=== PATIENT | male | born 1945 | race Caucasian/White ===

== ENCOUNTER 2017-12-10 22:34 | Inpatient (IN) | payer MEDICARE, OTHER ==
[~2017-12-10] VITALS: Ht 175.3 cm; Wt 70.4 kg
[2017-12-10 22:35] VITALS: BP 125/74
[2017-12-10] MEDS ORDERED: LISINOPRIL10 MG PO (22:42)
[2017-12-10] MEDS ORDERED: ZETIA10 MG PO (22:43)
[2017-12-10] MEDS ORDERED: SERTRALINE HCL50 MG PO (22:43)
[2017-12-10] MEDS ORDERED: THYROXIN PO (22:45)
[2017-12-10 22:51] LABS: HEMATOCRIT 40.8 % (42.0-52.0); HEMOGLOBIN 13.9 gm/dL (14.0-18.0); MCH 32.4 pg (26.0-34.0); MCV 95.4 fL (80.0-100.0); MPV 8.2 fl. (7.2-11.1); NUCLEATED RBCS 0 /100WBC; PLATELET COUNT* 252 thou/uL (150-400); RBC 4.28 mil/uL (4.50-6.00); WBC 13.7 thou/uL (4.0-11.0)
[2017-12-10 22:54] LABS: ABSOLUTE NEUTROPHILS 11.1 thou/uL (1.6-8.1)
[2017-12-10 22:55] LABS: ABSOLUTE BASOPHILS 0.2 thou/uL (0.0-0.2); ABSOLUTE EOSINOPHILS 0.1 thou/uL (0.0-0.7); ABSOLUTE LYMPHOCYTES 1.7 thou/uL (0.8-5.3); ABSOLUTE MONOCYTES 0.6 thou/uL (0.0-1.2); BASOPHILS 1.2 %; EOSINOPHILS 0.6 %; LYMPHOCYTES 12.6 %; MONOCYTES 4.6 %
[2017-12-10 23:04] LABS: CALCIUM 9.2 mg/dL (8.5-10.1); CREATININE 1.2 mg/dL (0.6-1.3); POTASSIUM 3.3 mmol/L (3.5-5.1)
[2017-12-10 23:08] LABS: ALBUMIN 3.6 g/dL (3.4-5.0); TOTAL BILIRUBIN 0.5 mg/dL (<0.1-1.0); TOTAL PROTEIN 6.6 g/dL (6.4-8.2)
[2017-12-10 23:13] LABS: URINE BILIRUBIN NEGATIVE (Negative); URINE BLOOD NEGATIVE (Negative); URINE CLARITY CLEAR; URINE COLOR YELLOW; URINE GLUCOSE-RANDOM NEGATIVE (Negative); URINE KETONES TRACE (Negative); URINE LEUKOCYTES-REFLEX NEGATIVE (Negative); URINE NITRITE-REFLEX NEGATIVE (Negative); URINE PROTEIN NEGATIVE (Negative); URINE SPECIFIC GRAVITY 1.015 (1.005-1.030); URINE UROBILINOGEN 0.2 E.U./dl (0.2-1.0)
[2017-12-11] VITALS (7 sets, daily range): BP systolic 99–130; BP diastolic 53–73
--- NOTE | 2017-12-11 16:31 | EKG ---
[place] [address] ELECTROCARDIOGRAM REPORT Name: JANICE MACHUCA III Room: [address] ADM IN M.R.#: [id number] Admission: 12/11/17 Attend Phys: Korey Sousa Discharge: Date of : 47 Report #: [id number] THIS REPORT FOR: //name// [facility] Test Date: 2017-12-11 Test Time: 05:35:42 Pat Name: JANICE MACHUCA Department: Room: [address] Gender: M Corpsman: [place] : 1945 Requested By: Korey Sousa Order Number: [id number] Ruthann MD: Christopher Ramirez Measurements Intervals [place] Rate: 94 P: 71 WA: 206 QRS: -36 QRSD: 96 T: 56 QT: 349 QTc: 437 Interpretive Statements Sinus rhythm Consider left atrial enlargement Left axis deviation Borderline low voltage, extremity leads Abnormal R-wave progression, late transition No previous ECG available for comparison Electronically Signed On 12-11-2017 16:30:49 CDT by Christopher Ramirez [email or web address] <ELECTRONICALLY SIGNED> By: Christopher Ramirez MD, [facility] 12/11/17 1630 0535 0535 Christopher Ramirez MD, [facility] /EPI
[2017-12-12 04:00] VITALS: BP 118/73
[2017-12-12 08:00] VITALS: BP 112/73
[2017-12-12 11:22] VITALS: BP 112/73
[2017-12-12] MEDS ORDERED: NORCO 5-325 TA1 EACH PO (11:28)
--- NOTE | 2017-12-14 17:09 | PATH ---
[address] [address] PATHOLOGY RPT PROCEDURE Name: JANICE NATHAN III Room: [address] IN .R.#: [id number] Admission: 12/11/17 Date of : 47 Discharge: 12/12/17 Report #: [id number] Path Case #: [id number] [facility] Accession Number: [id number] . 01 Material submitted: . APPENDIX . 01 Clinical history: . Acute appendicitis. . 02 Diagnosis: Appendix: - Acute appendicitis, periappendicitis and serositis with benign periappendiceal lymph node showing mild follicular hyperplasia. (KISHAN:pit 12/14/2017) QTP/12/14/2017 . 02 Electronically signed: . Al Weems MD, Pathologist NPI- [id number] . 01 Gross description: . Received in formalin labeled "Nathan III, Janice, appendix" is a vermiform appendix measuring 2.7 cm in length and ranging from 0.5-1.3 cm in diameter. There is an attached portion of mesoappendix measuring 3.6 x 2.0 x 0.9 cm. The proximal margin is closed with a staple line. The serosal surface is pink-vizcaino with a 2.5 x 1.7 cm area of vizcaino-white purulent exudate. Upon sectioning, the appendix has a luminal diameter of 0.2-0.5 cm. No perforations or fecaliths are grossly identified. The proximal margin (inked black), mid appendix, and one half of the distal tip are submitted in cassette A1. A vizcaino-white possible lymph node is identified within the mesoappendix, measuring 0.4 cm in greatest dimension. The possible lymph node is bisected and submitted in cassette A2. ([facility] [place]; 12/12/2017) SYC/SYC . 02 Pathologist provided ICD-10: K35.80 . 02 CPT . 113617 Performed at: [address], [place] [id number] MD iMles Gusman MD Phone: [phone] Performed at: 02 [facility] [address], [place] [id number] [facility] [address] [place] [address] PATHOLOGY RPT PROCEDURE Name: JANICE NATHAN III Room: [address] IN ..#: [id number] Admission: 12/11/17 Date of : 47 Discharge: 12/12/17 Report #: [id number] Path Case #: [id number] [facility] Phone: [phone]
--- NOTE | 2017-12-25 17:11 | OP ---
[facility] [address] [place] [address] OPERATIVE REPORT Name: JANICE MACHUCA III Room: [address] IN M.R.#: [id number] Admission: 12/11/17 Attend Phys: Korey Sousa Discharge: 12/12/17 Date of : 47 Report #: [id number] THIS REPORT FOR: //name// CC: Dale Sousa DATE OF SERVICE: 12/11/2017 PREOPERATIVE DIAGNOSIS: Acute appendicitis. POSTOPERATIVE DIAGNOSIS: Acute appendicitis. PROCEDURE: Laparoscopic appendectomy. SURGEON: Korey Sousa MD ANESTHESIA: General. ESTIMATED BLOOD LOSS: Minimal. SPECIMEN: Appendix. DESCRIPTION OF PROCEDURE: After informed consent was obtained, the patient was brought to the Operating Room and placed supine. SCDs were placed and working, preoperative antibiotics were administered, general anesthesia was induced. The abdomen was prepped and draped in the usual sterile fashion. A 10-mm incision was made below the umbilicus. Fascia was incised. Trocar was placed. Pneumoperitoneum was established. Right upper quadrant and left lower quadrant 5 mm ports were placed. The appendix was then grasped and retracted anteriorly. A window was made in the mesoappendix. The mesoappendix was ligated using NILSA white load stapler. The base of the appendix was stapled with a NILSA blue load. The appendix was removed through an Endopouch. There was good hemostasis. The fascia at the umbilicus was closed with a sajjlx-tw-dthlg 0 Vicryl. Skin was closed with 4-0 Monocryl. Incisions were sealed with Dermabond. COMPLICATIONS: None. DISPOSITION: The patient was taken to recovery in satisfactory condition. <ELECTRONICALLY SIGNED> By: Korey Sousa MD 12/25/17 1711 [id number] Sousa MD /nt
== END 2017-12-12 12:04 | disposition home or self-care (01) | DRG 342 ==
LOC: M.ERS 22:34 → M.ORTHSURG 12-11 01:41 → M.2W 12-11 01:41 → M.TBA-ER 12-11 01:41 → M.ORTHSURG 12-11 02:35 → M.2W 12-11 21:00
PROVIDERS: Emergency Medicine; ADMIT Surgery
PROC: 0DTJ4ZZ Resection of Appendix, Percutaneous Endoscopic Approach (ICD-10-PCS; principal; 2017-12-11)
DX: K35.80 Unspecified acute appendicitis (principal); R65.10 Systemic inflammatory response syndrome (SIRS) of non-infectious origin without acute organ dysfunction; I10 Essential (primary) hypertension; Z79.899 Other long term (current) drug therapy

== ENCOUNTER → 2021-03-19 | Outpatient (CLI) | payer OTHER ==
[~2021-03-19] MED LIST: LISINOPRIL10 MG PO; NORCO 5-325 TA1 EACH PO; SERTRALINE HCL50 MG PO; THYROXIN PO; ZETIA10 MG PO
== END ==
LOC: M.CT 13:50
PROVIDERS: ATTEND Nurse Practitioner Family
DX: Z13.6 Encounter for screening for cardiovascular disorders (principal)